=== PATIENT | male | born 1990 | race African-American/Black ===

== ENCOUNTER 2020-06-10 14:13 | Emergency (ER) | payer OTHER ==
[2020-06-10 14:28] VITALS: BP 113/62; PULSE 57; TEMP 98.2; BMI 31.7
[2020-06-10] MEDS ORDERED: KETOROLAC TROMETHAMINE 15 MG/ML VIAL IM ONE (14:49)
[2020-06-10] MEDS ORDERED: KETOROLAC TROMETHAMINE 15 MG/ML VIAL ONE (15:33)
[2020-06-10 15:37] LABS: BASO % 0.6 % (0-2.0); EOS % 1.1 % (0-4.5); HEMATOCRIT 48.2 % (35.4-49); HEMOGLOBIN 15.7 GM/dL (11.7-16.9); LYMPH % 38.9 % (8-40); MCH 27.8 pg (25.7-33.7); MCHC 32.6 g/dl (32.0-35.9); MEAN CELL VOLUME 85.2 fl (80-96); MEAN PLT VOLUME 8.1 fl (7.5-11.1); MONO % 9.1 % (3.8-10.2); NEUT % 50.3 % (42.8-82.8); PLATELET COUNT 293 K/MM3 (134-434); RBC 5.66 M/mm3 (4.00-5.60); RDW 13.7 % (11.9-15.9); WHITE BLOOD COUNT 5.5 K/mm3 (4.0-10.0)
[2020-06-10 15:45] LABS: CHLORIDE 102 mmol/L (98-107); SODIUM 135 mmol/L (136-145)
[2020-06-10 15:47] LABS: CALCIUM 9.4 mg/dL (8.5-10.1)
[2020-06-10 15:48] LABS: ALBUMIN 4.2 g/dl (3.4-5.0); BLOOD UREA NITROGEN 12.7 mg/dL (7-18); CO2 31 mmol/L (21-32); GLUCOSE,RANDOM 80 mg/dL (74-106)
[2020-06-10 15:51] LABS: CREATININE 1.1 mg/dL (0.55-1.3); SGOT/AST 61 U/L (15-37); SGPT/ALT 57 U/L (13-61)
[2020-06-10 15:52] LABS: BILIRUBIN,TOTAL 0.5 mg/dL (0.2-1)
[2020-06-10 15:53] LABS: TOT PROT 8.2 g/dl (6.4-8.2)
[2020-06-10 15:54] LABS: ALK PHOS 51 U/L (45-117)
[2020-06-10 16:25] LABS: ANION GAP 2 MMOL/L (8-16)
== END 2020-06-10 16:02 | disposition left against medical advice (07) ==
LOC: JER 14:13
PROC: 3E0233Z Introduction of Anti-inflammatory into Muscle, Percutaneous Approach (ICD-10-PCS; principal; 2020-06-10)
DX: R07.89 Other chest pain (principal)
CPT/HCPCS: 36415; 71045-TC-FY; 80053; 82550; 82553; 84484; 85025; 93005; 93010; 99285-25